=== PATIENT | female | born 1965 | race Caucasian/White ===

== ENCOUNTER 2019-12-16 08:17 | Day surgery (SDC) | payer OTHER ==
[~2019-12-16] VITALS: Ht 157.5 cm; Wt 85.3 kg
[~2019-12-16 08:17] MED LIST: HYDROmorphone 2 MG/ML VIAL IV PRN; IV RINGERS,LACTATED 1000ML 1,000 ML IV SCH; LISI10TA2 PO; MORPHINE SULFATE 2 MG/ML VIAL. IV PRN; ONDANSETRON PF 4 MG/2 ML VIAL. IV PRN; PROCHLORPERAZINE 10 MG/2 ML VIAL. IV PRN; fentaNYL PF VIAL 100 MCG/2 ML VIAL IV PRN
[2019-12-16] MEDS ORDERED: ceFAZolin 2GM PREMIX 2 GM/50 ML BAG IV ONE (09:00)
[2019-12-16] MEDS ORDERED: LIDOCAINE 2% PF 5 ML VIAL. ONE (09:07)
[2019-12-16] MEDS ORDERED: PROPOFOL 20 ML IV ONE (09:08)
[2019-12-16] MEDS ORDERED: LIDOCAINE 1% PF 30 ML VIAL. ONE (09:24)
--- NOTE | 2019-12-16 09:24 | DISCH ---
DISCHARGE INSTRUCTIONS Condition on Discharge Condition on Discharge: Stable Activity After Discharge Activity Instructions for Disc: No restrictions Other activity instructions: frequent range of motion at fingers Bathing Instructions: Shower-keep dressing dry Lifting Instructions after Dis: No heavy lifting Weight Bearing Status after Di: As tolerated Diet after Discharge Diet after Discharge: Regular Wound Incision Care Wound/Incision Care: Ice to area for comfort, Keep wound/cast CDI, Keep wound elevated, Change dressing Other wound/incision instructi: okay to change dressing after 2-3 days Contacting the [facility] after DC Call your doctor for: Concerns you may have Follow-Up Follow up with: Zeinab in 2 weeks Treatment/Equipment after DC Adaptive Equipment Issued: None LEXI RUVALCABA II, MD Dec 16, 2019 09:24
[2019-12-16] MEDS ORDERED: LIDOCAINE 1% 20 ML VIAL. ONE (09:30)
[2019-12-16] MEDS ORDERED: BUPIVACAINE MPF 0.5% 30 ML VIAL. ONE ×2 (09:30→10:08)
--- NOTE | 2019-12-16 10:28 | PDOC4 ---
Operative Note Operative Note Date of procedure: 12/16/19 Surgeon: Stewart Ruvalcaba Asst.: Zana Jon Preoperative diagnosis: Left carpal tunnel syndrome Postoperative diagnosis: Same Procedure performed: Open left carpal tunnel release Anesthesia: Anamika block with sedation Findings: normal-appearing median nerve Blood loss: 2 mL Tourniquet time: 22 minutes Complications: none Reason for procedure: Patient is very pleasant individual who has had long- standing symptoms consistent with their electromyographically proven EMG diagnosis of carpal tunnel syndrome. We had tried and failed conservative therapies and had a discussion of the risks, benefits, alternatives to the above surgery and they wished to proceed. Description of procedure: Patient was greeted in the preoperative area by myself for the correct extremity was verified and marked. They were then taken back to the operative suite, antibiotics were started as they were brought back. Once in the operating room, patient was transferred gently supine to the operating room table. The hand board attached and was applied to the operating room table. He underwent successful induction of a [place] block followed by sedation. The left upper extremity was then prepped and draped in our usual sterile fashion and we conducted our standard preoperative timeout. After this, I made an incision over the transverse carpal ligament from the distal wrist crease into the palm through a palmar crease. I incised skin with a scalpel and dissected subcutaneous tissue with a curved hemostat. I used bipolar cautery for hemostasis. Identified the palmar fascia and incised this in line with the skin incision and then placed myself retaining retractor. I identified the transverse carpal ligament and incised this with a scalpel. I then placed a Ragnell retractor in the distal portion of the incision, spread above and below small remaining portion of the transverse carpal ligament and transected this with a tenotomy scissors into the palm. After this, I repeated this maneuver and an ulnar directed fashion to release the distal antebrachial fascia at the proximal portion of the incision. I then palpated along the course of the median nerve with the tip of the tenotomies to help ensure that accomplished a complete release. The operative field was then irrigated out with sterile saline. After this, skin was closed with 3-0 nylon in a mattress fashion. A sterile bulky soft dressing was then applied to the patients hand and wrist. The tourniquet was l et down, hemostasis had been achieved with electrocautery. Patient tolerated surgery well. No complications. At the conclusion, they were awakened and transferred gently supine to the recovery room cart and taken to the PACU in a stable and extubated condition. Postoperative plan is to discharge patient home. Frequent range of motion at digits and wrist was encouraged. The patient was instructed not to lift anything heavy. I'll see her back in 2 weeks, sooner should a problem arise. STEWART RUVALCABA II, MD Dec 16, 2019 10:28
[2019-12-16] MEDS ORDERED: HYDROcodone/APAP 5/325MG 1 TAB TABLET PO PRN (10:30)
[2019-12-16] MEDS ORDERED: DOCU-109 PO (10:33)
[2019-12-16] MEDS ORDERED: HYDR-3164 PO (10:33)
[2019-12-16] MEDS ORDERED: ONDA8TAB9 PO (10:34)
[2019-12-16 10:45] VITALS: BP 150/84
== END 2019-12-16 11:15 | disposition home or self-care (01) ==
LOC: SURG 08:17
PROVIDERS: ATTEND Orthopaedic Surgery Sports Medicine
DX: G56.02 Carpal tunnel syndrome, left upper limb (principal); I10 Essential (primary) hypertension; E66.9 Obesity, unspecified; Z68.34 Body mass index [BMI] 34.0-34.9, adult; Z87.39 Personal history of other diseases of the musculoskeletal system and connective tissue; Z90.710 Acquired absence of both cervix and uterus
CPT/HCPCS: 64721; J0696; J2001; J2704; J3490